=== PATIENT | male | born 1955 | race Caucasian/White ===

== ENCOUNTER 2024-11-12 12:50 | Day surgery (SDC) | payer MEDICARE, OTHER ==
[2024-11-12] MEDS: Polymyxin B/Trimethoprim 10 ML Bottle EYERT SCH (13:28)
[2024-11-12] MEDS: Brimonidine 0.2% Ophth Soln 5 ML Bottle EYERT SCH (13:33)
[2024-11-12] MEDS: Phenylephrine 2.5% Ophth Soln 2 ML Bot EYERT SCH (13:37)
[2024-11-12] MEDS: Tropicamide 1% Ophth Soln 3 ML Bottle EYERT SCH (13:42)
[2024-11-12] MEDS: Lidocaine 1% PF 2 ML SDV INJECT SCH (14:01)
[2024-11-12] MEDS: Tetracaine HCl/PF 0.5% 4 ML Bottle EYEBOTH SCH (14:01)
[2024-11-12] MEDS: Cefuroxime 10 MG/ML SYRINGE EYERT SCH (14:02)
[2024-11-12] MEDS: Pilocarpine 4% Ophth Soln 15 ML Bot EYERT SCH (14:02)
== END 2024-11-12 15:18 | disposition home or self-care (01) ==
LOC: JD.SDS 12:50
PROVIDERS: ATTEND Ophthalmology
DX: H25.813 Combined forms of age-related cataract, bilateral (principal); I10 Essential (primary) hypertension; E78.2 Mixed hyperlipidemia; Z87.891 Personal history of nicotine dependence; Z79.899 Other long term (current) drug therapy
CPT/HCPCS: 66984; A9270; J0697; J3490

== ENCOUNTER 2024-12-10 13:32 | Day surgery (SDC) | payer MEDICARE, OTHER ==
[2024-12-10] MEDS: Phenylephrine 2.5% Ophth Soln 2 ML Bot EYELF SCH (10:52)
[2024-12-10] MEDS: Pilocarpine 4% Ophth Soln 15 ML Bot EYELF SCH (10:53)
[2024-12-10] MEDS: Lidocaine 1% PF 2 ML SDV INJECT SCH (10:53)
[2024-12-10] MEDS: Brimonidine 0.2% Ophth Soln 5 ML Bottle EYELF SCH (10:53)
[2024-12-10] MEDS: Cefuroxime 10 MG/ML SYRINGE EYELF SCH (10:53)
[2024-12-10] MEDS: Tetracaine HCl/PF 0.5% 4 ML Bottle EYEBOTH SCH (10:53)
[2024-12-10] MEDS: Polymyxin B/Trimethoprim 10 ML Bottle EYELF SCH (10:54)
[2024-12-10] MEDS: Tropicamide 1% Ophth Soln 3 ML Bottle EYELF SCH (14:50)
== END 2024-12-10 16:02 | disposition home or self-care (01) ==
LOC: JD.SDS 13:32
PROVIDERS: ATTEND Ophthalmology
DX: H25.812 Combined forms of age-related cataract, left eye (principal); I10 Essential (primary) hypertension; E78.2 Mixed hyperlipidemia; Z96.1 Presence of intraocular lens; Z87.891 Personal history of nicotine dependence; Z79.899 Other long term (current) drug therapy
CPT/HCPCS: A9270-GY; J0697; J3490